=== PATIENT | male | born 1960 | race Caucasian/White ===

== ENCOUNTER → 2016-06-18 | Outpatient (CLI) | payer OTHER ==
[~2016-06-18] MED LIST: FISH OIL 1,001000 M2 PO; FOLBIC RF TABL1 EACH PO; FOLIC ACID 40400 MCG PO; HYDROXYCHLOROQ200 M1 PO; IBUPROFEN 200200 M1 PO; METHOTREXATE 22.5 MG PO; PRILOSEC 20 MG20 MG PO
--- NOTE | ~2016-06-18 | EKG ---
[place] [address] [facility] [place] [employer] [place] [address] ELECTROCARDIOGRAM REPORT Name: ROLAND ALVAREZ Room #: REG CLI [facility]#: [id number] Admission: 06/18/16 Attend Phys: Thaddeus Garcia MD Discharge: Date of : 60 Report #: [id number] THIS REPORT FOR: //name// [facility] Test Date: 2016-06-18 Test Time: 09:30:25 Pat Name: ROLAND ALVAREZ Department: Room: Gender: Supervisor [employer] [place]: TREMAINE : 1960 Requested By: Nir Garcia Order Number: [id number] MD: Richie Aquino Measurements Intervals [place] Rate: 70 P: 53 NM: 150 QRS: 27 QRSD: 90 T: 5 QT: 394 QTc: 426 Interpretive Statements Sinus rhythm Baseline wander in lead(s) V1 No previous ECG available for comparison Electronically Signed On 06-19-2016 8:13:40 CDT by Richie Aquino [email or web address] <ELECTRONICALLY SIGNED> By: Richie Aquino MD, [facility] 06/19/16 0813 0930 9 Richie Aquino MD, FACC /EPI
== END | disposition home or self-care (01) ==
LOC: LITH 09:11
DX: N20.0 Calculus of kidney (principal); M19.90 Unspecified osteoarthritis, unspecified site; Z98.890 Other specified postprocedural states